=== PATIENT | female | born 1980 | race Caucasian/White ===

== ENCOUNTER 2023-07-18 03:53 | Day surgery (SDC) | payer OTHER ==
[2023-07-13 14:03] VITALS: BMI 39.8
[2023-07-18] MEDS ORDERED: LIDOCAINE HCL 1%, 10 MG/ML (20ML VIAL) ONE (12:50)
[2023-07-18] MEDS ORDERED: ONDANSETRON 4 MG/2 ML VIAL IVPUSH PRN (13:01)
[2023-07-18] MEDS ORDERED: LACTATED RINGERS SOLUTION 1,000 ML IV SCH (13:15)
[2023-07-18] MEDS ORDERED: FENTANYL CITRATE/PF 50 MCG/ML VIAL ONE ×3 (13:16→15:24)
[2023-07-18] MEDS ORDERED: MIDAZOLAM HCL 2 MG/2 ML SINGLE DOSE VIAL ONE (13:16)
[2023-07-18] MEDS ORDERED: PROPOFOL 20 ML ONE ×2 (13:16→13:53)
[2023-07-18] MEDS: ceFAZolin SODIUM 1 GM VIAL IVPB ONE (13:42)
[2023-07-18] MEDS ORDERED: ceFAZolin SODIUM 1 GM VIAL ONE ×2 (13:44)
[2023-07-18] MEDS: LIDOCAINE HCL 1%, 10 MG/ML (20ML VIAL) INF ONE ×2 (13:49)
[2023-07-18] MEDS ORDERED: ACETAMINOPHEN INJECTION 100 ML IVPB ONE (15:24)
[2023-07-18] MEDS: FENTANYL CITRATE/PF 50 MCG/ML VIAL IVPUSH PRN (15:30)
[2023-07-18] MEDS: ACETAMINOPHEN 1000 MG/100 ML BAG IVPB ONE (15:35)
[2023-07-18] MEDS: LACTATED RINGERS SOLUTION 1,000 ML IV SCH (16:05)
[2023-07-18] MEDS: oxyCODONE HCL 5 MG TABLET PO PRN (16:31)
[2023-07-18] MEDS ORDERED: oxyCODONE HCL 5 MG TABLET ONE (16:32)
[2023-07-18 17:39] VITALS: RESP 20; TEMP 97.8
[2023-07-18 17:42] VITALS: BP 118/67; PULSE 60
== END 2023-07-18 17:37 | disposition home or self-care (01) ==
LOC: JASU-SURG 03:53
PROVIDERS: ATTEND Surgery
PROC: 02HV33Z Insertion of Infusion Device into Superior Vena Cava, Percutaneous Approach (ICD-10-PCS; 2023-07-18)
PROC: B518ZZA Fluoroscopy of Superior Vena Cava, Guidance (ICD-10-PCS; 2023-07-18)
PROC: 0JH60WZ Insertion of Totally Implantable Vascular Access Device into Chest Subcutaneous Tissue and Fascia, Open Approach (ICD-10-PCS; principal; 2023-07-18 13:00)
DX: C50.912 Malignant neoplasm of unspecified site of left female breast (principal)
CPT/HCPCS: 36561; C1788; 71045-TC-FY; 76000-TC-FY; 81025; 94760; C1751; J0131; J1644

== ENCOUNTER 2023-11-08 05:03 | Day surgery (SDC) | payer OTHER ==
[2023-10-30 13:37] VITALS: BMI 38.9
[2023-11-08] MEDS ORDERED: ONDANSETRON 4 MG/2 ML VIAL IVPUSH PRN ×2 (10:42→20:39)
[2023-11-08] MEDS ORDERED: LIDOCAINE HCL 1%, 10 MG/ML (20ML VIAL) ONE (11:05)
[2023-11-08] MEDS ORDERED: ISOSULFAN BLUE 50 MG/5 ML VIAL SQ ONE (11:18)
[2023-11-08] MEDS ORDERED: DEXAMETHASONE SOD PHOSPHATE 4 MG/1 ML VIAL ONE (11:29)
[2023-11-08] MEDS ORDERED: LIDOCAINE HCL/PF 2% SDV 5ML VIAL ONE (11:29)
[2023-11-08] MEDS ORDERED: MIDAZOLAM HCL 2 MG/2 ML SINGLE DOSE VIAL ONE (11:29)
[2023-11-08] MEDS ORDERED: ONDANSETRON 4 MG/2 ML VIAL ONE (11:29)
[2023-11-08] MEDS ORDERED: PROPOFOL 20 ML ONE ×3 (11:29→14:48)
[2023-11-08] MEDS: ceFAZolin SODIUM 1 GM VIAL IVPB ONE (12:01)
[2023-11-08] MEDS ORDERED: PROPOFOL 60 ML ONE (12:04)
[2023-11-08] MEDS: LIDOCAINE HCL 1%, 10 MG/ML (50 mL VIAL) INF ONE (12:23)
[2023-11-08] MEDS ORDERED: HYDROmorphone HCl 2 MG/ML VIAL ONE (12:56)
[2023-11-08] MEDS: ACETAMINOPHEN 1000 MG/100 ML BAG IVPB ONE (15:22)
[2023-11-08] MEDS ORDERED: MECLIZINE HCL 25 MG TABLET (FP) PO PRN (15:29)
[2023-11-08] MEDS ORDERED: ALBUTEROL SO4 HFA INHALER IH PRN (15:29)
[2023-11-08] MEDS: LACTATED RINGERS SOLUTION 1,000 ML IV SCH (17:06)
[2023-11-08] MEDS: CEFAZOLIN SODIUM 2 GM in DEXTROSE 5%-WATER 100 ML IVPB SCH (18:14)
[2023-11-08 18:28] VITALS: RESP 18
[2023-11-08] MEDS ORDERED: ONDANSETRON 4 MG TABLET PO PRN (20:39)
[2023-11-08] MEDS ORDERED: PATIENT'S OWN MEDICATION (NON-FORMULARY) (Meloxicam [Meloxicam] 15 MG Tablet) PO SCH (22:00)
[2023-11-08] MEDS: BUDESONIDE/FORMETEROL FUMARATE 80/4.5 mcg INHALER IH SCH (22:09)
[2023-11-08] MEDS: CYCLOBENZAPRINE HCL 10 MG TABLET (FP) PO SCH (22:09)
[2023-11-08] MEDS: oxyCODONE HCL 5 MG TABLET PO PRN (22:10)
[2023-11-08] MEDS: ACETAMINOPHEN 500 MG TABLET (FP) PO SCH (23:50)
[2023-11-09] MEDS: INSULIN ASPART SLIDING SCALE (NOVOLOG) 1 VIAL SQ SCH (06:53)
[2023-11-09] MEDS ORDERED: metFORMIN HCL 500 MG TABLET (FP) PO SCH (07:00)
[2023-11-09] MEDS: oxyCODONE HCL 5 MG TABLET PO PRN (09:24)
[2023-11-09 15:52] VITALS: BP 93/77; PULSE 89; TEMP 98.4
== END 2023-11-09 16:03 | disposition home or self-care (01) ==
LOC: JASU-SURG 05:03 → SUATTDRO 05:03 → JASUSAT 05:03 → J8W 17:53 → JASUSAT 11-09 16:03
PROVIDERS: ATTEND Nurse Practitioner Acute Care
PROC: 0HBU0ZZ Excision of Left Breast, Open Approach (ICD-10-PCS; principal; 2023-11-08 12:00)
DX: C50.919 Malignant neoplasm of unspecified site of unspecified female breast (principal); C77.3 Secondary and unspecified malignant neoplasm of axilla and upper limb lymph nodes
CPT/HCPCS: 78195-TC; 81025; 82962; 88307-TC; 88342-TC; 93970-TC; 94760; A9541; J0131